=== PATIENT | female | born 1940 | race Caucasian/White ===

== ENCOUNTER 2021-03-18 20:08 | Emergency (ER) | payer MEDICARE, OTHER ==
[2021-03-18] MEDS ORDERED: Fentanyl 100 MCG/2 ML VIAL ONE (21:28)
== END 2021-03-18 21:57 | disposition home or self-care (01) ==
LOC: CSHERS 20:08
DX: S42.351A Displaced comminuted fracture of shaft of humerus, right arm, initial encounter for closed fracture (principal); S40.011A Contusion of right shoulder, initial encounter; M25.421 Effusion, right elbow; W01.0XXA Fall on same level from slipping, tripping and stumbling without subsequent striking against object, initial encounter
CPT/HCPCS: 96374; J3010

== ENCOUNTER 2025-11-07 08:03 | Outpatient (CLI) | payer MEDICARE, OTHER ==
[2025-11-07 08:53] LABS: Estimated GFR - POC 49.0
== END 2025-11-07 08:04 | disposition home or self-care (01) ==
LOC: CSHMRI 08:03
PROVIDERS: ATTEND Internal Medicine Hematology & Oncology
DX: C50.412 Malignant neoplasm of upper-outer quadrant of left female breast (principal); M81.0 Age-related osteoporosis without current pathological fracture; M80.88XS Other osteoporosis with current pathological fracture, vertebra(e), sequela
CPT/HCPCS: 36415; 70553; 76376; 82565